=== PATIENT | male | born 1995 | race Caucasian/White ===

== ENCOUNTER 2020-05-09 16:30 | Outpatient (REF) | payer MEDICAID, SELFPAY | END 2020-05-09 16:31 | disposition home or self-care (01) | LOC: HO.LAB 16:30 | PROVIDERS: Visit Provider Internal Medicine | DX: Z20.828 Contact with and (suspected) exposure to other viral communicable diseases (principal) | CPT/HCPCS: C9803; U0003 ==

== ENCOUNTER 2021-04-04 09:15 | Emergency (ER) | payer MEDICAID, SELFPAY ==
--- NOTE | ~2021-04-04 | XR_ITS ---
EXAMINATION: BILATERAL SHOULDER. CLINICAL INFORMATION: Status post dislocation yesterday. COMPARISON: None TECHNIQUE: 3 views each shoulder. FINDINGS: LEFT SHOULDER: There is normal glenohumeral alignment. The AC joint is normal. No visible acute fracture, dislocation or lytic process seen. The soft tissues are normal. RIGHT SHOULDER: The glenohumeral joint space is normal. The AC joint space is normal. No visible acute fracture or dislocation seen. There is no lytic process. XR/XR shoulder RT min 2V IMPRESSION: Unremarkable bilateral shoulder exam.
--- NOTE | ~2021-04-04 | XR_ITS ---
EXAMINATION: BILATERAL SHOULDER. CLINICAL INFORMATION: Status post dislocation yesterday. COMPARISON: None TECHNIQUE: 3 views each shoulder. FINDINGS: LEFT SHOULDER: There is normal glenohumeral alignment. The AC joint is normal. No visible acute fracture, dislocation or lytic process seen. The soft tissues are normal. RIGHT SHOULDER: The glenohumeral joint space is normal. The AC joint space is normal. No visible acute fracture or dislocation seen. There is no lytic process. XR/XR shoulder LT min 2V IMPRESSION: Unremarkable bilateral shoulder exam.
[2021-04-04 09:18] VITALS: BP 149/91; PULSE 78; RESP 16; TEMP 36.7; O2SAT 98; BMI 30.4
--- NOTE | 2021-04-04 09:18 | ED_ITS ---
HPI - Extremity Injury (Upper) General Chief Complaint: Extremity Problem Stated Complaint: shoulder pain Time Seen by Provider: 04/04/21 09:18 Source: patient Mode of arrival: ambulatory Limitations: no limitations History of Present Illness HPI narrative: 25 y/o male with history of seizures and multiple episodes of bilateral shoulder dislocation (initially related to seizures but not occurs spontaneously) presents to the ER with bilateral shoulder pain for the last 2 years. He reports when he would have seizures he would fall and dislocate his shoulders and this has happened several times. Yesterday he woke up with his left shoulder out of place, he was able to pop it back in. He reports ongoing aching and pain in his left shoulder today. His boss brought him in for evaluation. Denies falling or recent injury. Does not think he is having seizures but he has been off of his AED since May 2020 when he had his last known seizure. He has never seen an Orthopedic doctor before. MD complaint: injury to: left, right and shoulder Onset (ago): year(s) Other Extremity Injury: bilateral: shoulder (left worse than right) Other injuries: none Place: home Severity: moderate Severity scale (1-10): 7 Relieving factors: none Exacerbating factors: movement of extremity Associated symptoms: heard/felt popping sensation Related Data Previous Rx's Medication Instructions Recorded ibuprofen 800 mg tablet 800 mg PO Q8H PRN #14 tab 04/04/21 lidocaine 5 % topical patch 1 patch TOPICAL DAILY #15 ea 04/04/21 (Lidoderm) Allergies Allergy/AdvReac Type Severity Reaction Status Date / Time No Known Allergies Allergy Unverified 03/21/20 16:42 [No Known Allergies*] Review of Systems Review of Systems: Constitutional: No Fever, No Chills Musculoskeletal: + joint pain, No Myalgias Skin: No Skin Lesions, No rash Neuro: No Weakness, No Numbness Heme/Lymph: No Bruising PMFSH Past Medical History Medical History (Updated 04/04/21 @ 10:25 by CELINA Dumas) Seizures Social History Social History Advance Directives: No Advance Directives Information Provided: Yes Physical Exam Vital Signs: Vital Signs: Last Vital Signs Temp 98.0 F 04/04/21 09:18 Pulse 78 04/04/21 09:18 Resp 16 04/04/21 09:18 BP 149/91 H 04/04/21 09:18 Pulse Ox 98 04/04/21 09:18 Body Mass Index 30.4 Appearance: Alert. Oriented X3. No acute distress. HEENT: normal inspection CVS: Normal heart rate and rhythm. Pulses normal. Respiratory: No respiratory distress. Skin: Skin warm and dry. Normal skin color. Normal skin turgor. No rashes. Extremities: normal inspection of bilateral shoulders, right shoulder with normal passive ROM, nontender. NV intact distally. left arm with pain with abduc tion, unable to fully abduct. tender thoughout the joint, no point tenderness. NV intact distally. Neuro: Oriented X 3. No motor deficit. No sensory deficit. Course Course Course Narrative: 25 y/o male presenting with bilateral shoulder pain in the setting of recurrent, spontaneous dislocations. Last was yesterday on the left side. Limited ROM of the left side. Hx fracture in the joint socket per patient. XR's today were unremarkable. Will place in sling for comfort and have him follow up with Orthopedics for surgical evaluation. Stable for d/c home, NSAIDS as needed for pain. Discharge Plan Discharge Clinical Impression: Chronic shoulder pain Qualifiers: Laterality: bilateral Qualified Code(s): M25.511 - Pain in right shoulder Recurrent dislocation of shoulder Qualifiers: Laterality: left Qualified Code(s): M24.412 - Recurrent dislocation, left shoulder Patient Disposition: Home, Self-Care Instructions: Shoulder Pain (ED), Shoulder Arthroscopy (DC) Additional Instructions: Your x-rays of your shoulders today were normal. You need to see Orthopedics for evaluation and possible surgical intervention. Name and number below Rest. Wear the sling as needed for left shoulder pain. Take the prescribed medication as needed for pain. Prescriptions: New ibuprofen 800 mg tablet 800 mg PO Q8H PRN (Reason: pain) Qty: 14 RF: 0 lidocaine [Lidoderm] 5 % adhesive patch,medicated 1 patch topical DAILY Qty: 15 RF: 0 Referrals: Brian Mendez MD [Physician] - 2 days (recurrent spontaneous bilateral shoulder dislocations x2 years) Stand Alone Forms: Work/School Release
[2021-04-04] MEDS: Ibuprofen 600 MG TABLET PO (10:11)
== END 2021-04-04 10:52 | disposition home or self-care (01) ==
PROVIDERS: Emergency Provider Emergency Medicine
DX: M25.511 Pain in right shoulder (principal); M24.412 Recurrent dislocation, left shoulder; M25.512 Pain in left shoulder; Z79.899 Other long term (current) drug therapy
CPT/HCPCS: 73030; 99284

== ENCOUNTER → 2021-04-17 13:43 | Outpatient (BNVA) | payer MEDICAID, SELFPAY | PROVIDERS: Visit Provider Physician Assistant | DX: M25.311 Other instability, right shoulder (principal); M25.312 Other instability, left shoulder | CPT/HCPCS: 99202 ==

== ENCOUNTER → 2021-05-16 08:28 | Outpatient (BNVA) | payer MEDICAID, SELFPAY | PROVIDERS: Visit Provider Internal Medicine | DX: M25.551 Pain in right hip (principal); M25.552 Pain in left hip; M25.311 Other instability, right shoulder; M25.312 Other instability, left shoulder; M54.12 Radiculopathy, cervical region | CPT/HCPCS: 99202 ==

== ENCOUNTER → 2021-06-03 12:43 | Outpatient (BNVA) | payer MEDICAID, SELFPAY | PROVIDERS: Visit Provider Physician Assistant | DX: M54.12 Radiculopathy, cervical region (principal); M25.311 Other instability, right shoulder; M25.312 Other instability, left shoulder | CPT/HCPCS: 99212 ==

== ENCOUNTER 2023-02-09 10:11 | Outpatient (REF) | payer MEDICAID, SELFPAY ==
[2023-02-09 11:44] LABS: Appearance Urine Clear; Color Urine Yellow; Glucose Urine UA Negative (Negative); Leukocyte Esterase Urine Negative (Negative); Nitrite Urine Negative (Negative); PH 5.5 (5.0-9.0); UMIC TRIGGER UA YES; Urine Blood Large (3+) (Negative); Urine Ketones Negative (Negative); Urine Protein 300 (3+) mg/dL (Neg-Trace)
[2023-02-09 11:45] LABS: Estimated Average Glucose 100 mg/dL; Hemoglobin A1c % 5.1 %
[2023-02-09 11:48] LABS: Bacteria Urine None Seen (None Seen); Hyaline Casts Urine 0-2 /LPF (0-2); RBC Urine >20 /HPF (0-2); Squamous Epithelial Cell Urine 0-2 /HPF (0-2); WBC Urine 0-5 /HPF (0-5)
[2023-02-09 12:47] LABS: Anion Gap 11 (12-20); Blood Urea Nitrogen 23 mg/dL (9-16); Calcium 9.7 mg/dL (8.4-10.2); Carbon Dioxide 26 mmol/L (22-29); Chloride 107 mmol/L (96-108); Cholesterol 236 mg/dL; Estimated Glomerular Filt Rate 43; Glucose Random 87 mg/dL (60-115); HDL Cholesterol 31 mg/dL; LDL Cholesterol Calculated 128 mg/dl; Potassium 4.4 mmol/L (3.3-5.1); Sodium 140 mmol/L (135-145); Triglycerides 389 mg/dL
[2023-02-18 16:33] LABS: Plasma Renin Activity 2.49 ng/mL/h (0.25-5.82)
== END 2023-02-09 10:12 | disposition home or self-care (01) ==
LOC: HO.HHCL 10:11
PROVIDERS: Visit Provider Registered Nurse
DX: I10 Essential (primary) hypertension (principal); Z83.3 Family history of diabetes mellitus
CPT/HCPCS: 36415; 80048; 80061; 81001; 82088; 83036